=== PATIENT | female | born 1950 | race Caucasian/White ===

== ENCOUNTER → 2016-12-13 | Day surgery (SDC) | payer MEDICARE, OTHER ==
[~2016-12-13] VITALS: Ht 154.9 cm; Wt 60.3 kg
[~2016-12-13] MED LIST: ERYTHROMYCIN OPH1 GM OPH; NORCO 5-325 TA1 EACH PO; PILOCARPINE HYDR5 MG PO; VICODIN ES 7.51 EACH PO
--- NOTE | ~2016-12-13 | O ---
[place], [place] OPERATIVE NOTE NAME[id number] UNIT #: [id number] ROOM: DOCTOR: LAM HOLMAN MD BIRTHDATE: [birth year] DOS: 12/13/2016 PREOPERATIVE DIAGNOSES: 1. Chronic dry mouth. 2. Rule out Sjogren's syndrome. POSTOPERATIVE DIAGNOSES: 1. Chronic dry mouth. 2. Rule out Sjogren's syndrome. PROCEDURE: Minor salivary gland biopsy of lower lip. SURGEON: Lam Holman MD ANESTHESIA: General with propofol. No local utilized. DESCRIPTION OF PROCEDURE: The patient was taken to the OR where general IV sedation was induced using propofol. The patient was positioned supine and the oral cavity was prepped and draped in standard fashion for oral surgery. The lower lip was examined and then horizontal incision 2 cm in length was made. Multiple minor salivary glands were excised and submitted to pathology for histologic analysis to exclude a diagnosis of Sjogren's syndrome. Minor bleeding was controlled with electrical cautery. The wound was closed using interrupted 3-0 Vicryl suture. The patient was awakened and transported to PACU in satisfactory condition. LAM HOLMAN MD CM:OPRECORD:OPERATIVE NOTE [id number] LAM HOLMAN MD 12/14/16 1156 interface
[2016-12-13 11:00] VITALS: BP 128/65
[2016-12-13 11:15] VITALS: BP 119/55
[2016-12-13 11:35] VITALS: BP 124/50
[2016-12-13 11:47] VITALS: BP 126/58
== END | disposition home or self-care (01) ==
LOC: SDC 12-08 08:45
DX: R68.2 Dry mouth, unspecified (principal); I09.9 Rheumatic heart disease, unspecified; Z90.710 Acquired absence of both cervix and uterus; Z87.891 Personal history of nicotine dependence